=== PATIENT | female | born 1945 | race Caucasian/White ===

== ENCOUNTER 2017-12-10 10:44 | Outpatient (CLI) | payer MEDICARE ==
[~2017-12-10] VITALS: Ht 162.6 cm; Wt 55.5 kg
--- NOTE | ~2017-12-10 | HEMODYNAMI ---
PATIENT:YESSY DIAZ MEDICAL RECORD: [id number] : 47 LOCATION:[facility] ADMISSION DATE: 12/10/17 Generatedon:12/10/201713:40 Patient name: YESSY DIAZ Patient #: [id number] SSN: : 1945 Date of study: 12/10/2017 Page: Of Hemodynamic Procedure Report Patient Data Patient Demographics Procedure consent was obtained First Name: YESSY Gender: Female Last Name: JOE : 1945 Middle Initial: NAVDEEP Age: 72 year(s) Patient #: [id number] Race: Unknown Additional ID: [id number] Contact details Address: [address] [place] [address] State: [place] City: [place] Zip code: [address] Past Medical History Allergies Allergen Reaction Date Comments Reported Codeine 12/10/2017 Percocet 12/10/2017 Other allergy 12/10/2017 hydrocodone Admission Admission Data Admission Date: 12/10/2017 Admission Time: 10:44 Procedure Procedure Types Cath Procedure Diagnostic Procedure [facility] w/Coronaries Sedation Charges Moderate Sedation up to 15 minutes PCI Procedure Coronary Stent Coronary Stent Initial Procedure Description Procedure Date Procedure Date: 12/10/2017 Procedure Start Time: 13:05 Procedure End Time: 13:39 Procedure Staff Name Function Kg Simms MD Performing Physician Lisa Painting RT Monitor Jameel Salvador RN Nurse Po Schwartz RT Scrub Procedure Data Cath Procedure Fluoroscopy Diagnostic fluoroscopy Total fluoroscopy Time: 8.1 time: 8.1 min min Diagnostic fluoroscopy Total fluoroscopy dose: dose: 409.97 mGy 409.97 mGy Contrast Material Contrast Material Type Amount (ml) Isovue 300 177 Entry Location Entry Primary Successful Side Size Upsize Upsize Entry Closure Succes sful Closure Location (Fr) 1 (Fr) 2 (Fr) Remarks Device Remarks Femoral Right 5 Fr 6 Fr Exoseal artery Short Estimated blood loss: 10 ml Diagnostic catheters Device Type Used For End Catheter Placement MULTIPACK JL 4.0 5Fr Left Coronary catheter Angiography MULTIPACK 3DRC 5Fr Right Coronary catheter Angiography MULTIPACK Pigtail 5 Fr LV Angiography catheter Procedure Complications No complications Procedure Medications Medication Administration Route Dosage Oxygen etCO2 Nasal cannula 2 l/min Heparin Flush Bag added to field 2 bags (1000units/500ml NS) 0.9% NaCl I.V. 100 ml/hr Fentanyl I.V. 50 mcg Versed I.V. 1 mg Fentanyl I.V. 50 mcg Versed I.V. 1 mg Heparin Bolus I.V. 4000 units Integrilin (Bolus I.V. 6.8 ml 2mg/ml) Fentanyl I.V. 50 mcg Plavix P.O. 600 mg Hemodynamics Rest Heart Rate: 73 (bpm) Pressure Samples Time Site Value (mmHg) Purpose Heart Use Rate(bpm) 13:13 LV 150/12,14 EDP 81 Gradients Valve Time Site Site Mean SEP/DFP Peak To Heart Use 1 2 (mmHg) (sec/min) Peak Rate (mmHg) (bpm) Aortic 13:14 LV AO 81 Snapshots Pre Cath Intra NCS Post Cath Vital Signs Time Heart Resp SPO2 etCO2 NIBP (mmHg) Rhythm Pain Sedation Rate (ipm) (%) (mmHg) Status Level (bpm) 12:47:41 73 17 0 155/85(115) NSR 0 (11) 10(A) , No pain 12:52:10 72 16 96 36.5 148/84(111) NSR 0 (11) 10(A) , No pain 12:56:30 73 17 97 38 146/81(110) NSR 0 (11) 10(A) , No pain 13:00:56 73 16 98 38.7 142/77(113) NSR 0 (11) 10(A) , No pain 13:05:18 76 16 94 20.8 138/86(116) NSR 0 (11) 10(A) , No pain 13:09:42 78 16 97 40.2 145/77(117) NSR 0 (11) 9(A) , No pain 13:14:06 80 16 97 40.9 142/83(109) NSR 0 (11) 9(A) , No pain 13:18:29 81 16 97 26.8 135/78(108) NSR 0 (11) 9(A) , No pain 13:22:45 81 17 94 23 136/78(108) NSR 0 (11) 9(A) , No pain 13:27:07 81 18 97 41.7 149/75(104) NSR 0 (11) 9(A) , No pain 13:31:35 78 16 95 41.6 146/78(108) NSR 0 (11) 9(A) , No pain 13:36:06 83 16 96 40.2 142/67(119) NSR 0 (11) 9(A) , No pain Medications Time Medication Route Dose Verified Delivered Reason Notes Effectiveness by by 12:49:48 Oxygen etCO2 2 Kg Jorgensen Per physician Nasal l/min St Jesus Salvador RN cannula 12:49:57 Heparin Flush added 2 Kg Jorgensen used for Bag to bags St Jesus Salvador RN procedure (1000units/500ml field NS) 12:50:06 0.9% NaCl I.V. 100 Kg Jorgensen Per physician ml/hr St Jesus Salvador RN, MD 13:02:27 Fentanyl I.V. 50 Kg Jorgensen for sedation katelynn Matta RN, MD 13:02:34 Versed I.V. 1 mg Kg Jorgensen for sedation [facility] Jesus Salvador RN, MD 13:05:51 Fentanyl I.V. 50 Kg Jorgensen for sedation mcg [facility] Jesus Salvador RN, MD 13:05:56 Versed I.V. 1 mg Kg Jorgensen for sedation St Jesus Salvador RN, MD 13:17:15 Heparin Bolus I.V. 4000 Kg Jorgensen for units [facility] Jesus Salvador RN anticoagulation 13:17:33 Integrilin I.V. 6.8 Kg Jorgensen for (Bolus 2mg/ml) ml St Jesus Salvador RN anticoagulation 13:24:51 Fentanyl I.V. 50 Kg Jorgensen for sedation [facility] Jesus Salvador RN, MD 13:36:57 Plavix P.O. 600 Kg Jorgensen for mg [facility] Jesus Salvador RN antiplatelet therapy Procedure Log Time Note 12:20:41 Jameel Salvador RN sent for patient. Start room use. 12:27:39 Time tracking: Regular hours 12:27:42 Plan of Care:Hemodynamics will remain stable., Cardiac rhythm will remain stable., Comfort level will be maintained., Respiratory function will remain adequate., Patient/ family verbilizes understanding of procedure., Procedure tolerated without complication., Recovers from procedure without complications.. 12:39:41 Patient received from Pre/Post Procedure Room to CCL 3 Alert and oriented. Tansferred to table in Supine position. 12:39:42 Warm blankets applied, and lazarus hugger turned on for patient comfort. 12:39:43 Correct patient and procedure confirmed by team. 12:39:44 Signed procedure consent form obtained from patient. 12:39:45 ECG and BP/O2 sat monitors applied to patient. 12:39:55 H&P Date Dictated: 12/07/2017 Within 30 days and on chart., H&P Addendum completed by physician on day of procedure. (MUST COMPLETE FOR ALL OUTPATIENTS). 12:46:22 Vital chart was started 12:46:59 Full Disclosure recording started 12:47:01 Rhythm: sinus rhythm 12:47:03 Pre-procedure instructions explained to patient. 12:47:03 Pre-op teaching completed and patient verbalized understanding. 12:47:04 Family in waiting room. 12:47:05 Patient NPO since Midnight. 12:47:13 Patient allergic to Codeine 12:47:17 Patient allergic to Percocet 12:47:36 Patient allergic to Other allergyhydrocodone 12:47:56 Is the patient allergic to Iodine/contrast media? No. 12:47:59 Is patient on blood thinner?No 12:48:01 Patient diabetic? Yes. 12:48:02 If diabetic: On Metformin? Yes 12:48:05 If on Metformin: Last Dose? 12/09/2017 12:48:08 Previous problem with sedation/anesthesia? No ? 12:48:10 Snore? Yes 12:48:11 Sleep apnea? No 12:48:12 Deviated septum? No 12:48:12 Opens mouth fully? Yes 12:48:13 Sticks out tongue? Yes 12:48:15 Airway obstruction? No ? 12:48:21 Dentures? Yes In 12:48:26 Pre procedure: right dorsailis pedis pulse 2+ Normal; easily identifiable; not easily obliterated 12:48:29 Patient pain scale 0/10 ?. 12:48:37 IV patent on arrival in left hand with 0.9% NaCl at O. 12:48:57 RESERVE RIGHT ARM 12:49:00 Lab results completed and on chart. 12:49:03 Right groin area was prepped with chlora-prep and draped in sterile fashion 12:49:04 Alarms reviewed by R. N. 12:49:04 Sharps counted by scrub and verified by R.N. 12:49:07 Use device set Femoral Dx 12:49:07 ACIST Syringe (96877) opened to sterile field. 12:49:08 Bag Decanter (2002S) opened to sterile field. 12:49:08 Medline Cath Pack ([id number]) opened to sterile field. 12:49:09 SHEATH 5FR Rosamond (RLK993) opened to sterile field. 12:49:10 DIAGNOSTIC WIRE .035 260cm J wire (280267) opened to sterile field. 12:49:11 ACIST Hand Control (48362) opened to sterile field. 12:49:11 ACIST Manifold (86219) opened to sterile field. 12:49:12 DIAGNOSTIC Multipack 5Fr catheter set (JD0175) opened to sterile field. 12:49:13 Tegaderm 4 x 4 (1626W) opened to sterile field. 12:49:14 PERCUTANEOUS ENTRY 19GA needle opened to sterile field. 12:49:48 Oxygen 2 l/min etCO2 Nasal cannula was administered by Jameel Salvador RN; Per physician; 12:49:50 Baseline sample Acquired. 12:49:57 Heparin Flush Bag (1000units/500ml NS) 2 bags added to field was administered by Jameel Salvador RN; used for procedure; 12:50:06 0.9% NaCl 100 ml/hr I.V. was administered by Jameel Salvador RN; Per physician; 12:54:20 Physician paged 12:59:48 Physician paged 13:00:02 Final Timeout: patient, procedure, and site verified with staff and physician. All members of the team are in agreement. 13:00:04 Right groin site verified by team. 13:00:06 Physical assessment completed. ASA score P 2 - A patient with mild systemic disease as per Kg Simms MD. 13:00:10 Sedation plan: IV Moderate Sedation Medication:Versed, Fentanyl 13:02:27 Fentanyl 50 mcg I.V. was administered by Jameel Salvador RN; for sedation; 13:02:34 Versed 1 mg I.V. was administered by Jameel Salvador RN; for sedation; 13:05:10 Procedure started. 13:05:18 Local anesthetic to right femoral artery with Lidocaine 2% by Kg Simms MD.INITIAL ACCESS ONLY 13:05:51 Fentanyl 50 mcg I.V. was administered by Jameel Salvador RN; for sedation; 13:05:56 Versed 1 mg I.V. was administered by Jameel Salvador RN; for sedation; 13:06:09 Zero performed for pressure channel P1 13:06:20 A 5 Fr sheath was inserted into the Right Femoral artery 13:07:14 A MULTIPACK JL 4.0 5Fr catheter was advanced over the wire and used for Left Coronary Angiography. 13:09:02 Use device set JUMA PCI 13:09:08 INFLATOR Merit BasixCompak (FI7819) opened to sterile field. 13:09:13 WHISPER 300cm guide wire ([id number]) opened to sterile field. 13:11:32 Catheter removed. 13:12:00 A MULTIPACK 3DRC 5Fr catheter was advanced over the wire and used for Right Coronary Angiography. 13:12:02 Catheter removed. 13:12:06 A MULTIPACK Pigtail 5 Fr catheter was advanced over the wire and used for LV Angiography. 13:13:07 GUIDE 6FR EBU 3.75 catheter ([id number]) opened to sterile field. 13:13:36 LV gram done using LIN 13:13:37 LV hemodynamics recorded. 13:13:39 Injector settings: Ml/sec: 10, Volume: 20, 13:14:33 SHEATH 6Fr Prelude ([id number]) opened to sterile field. 13:14:43 Catheter removed. 13:14:49 Sheath upsized to a 6 Fr Short. 13:17:15 Heparin Bolus 4000 units I.V. was administered by Jameel Salvador RN; for anticoagulation; 13:17:33 Integrilin (Bolus 2mg/ml) 6.8 ml I.V. was administered by Jameel Salvador RN; for anticoagulation; 13:17:39 6 Fr EBU 3.75 guide catheter was inserted over the wire 13:24:51 Fentanyl 50 mcg I.V. was administered by Jameel Salvador RN; for sedation; 13:25:42 WHISPER wire advanced. 13:27:20 Inflation number: 1 A EUPHORA 2.5 x 15 Balloon ([id number]) was prepped and advanced across the Prox LAD, then inflated to 10 KELLIE for 0:10 (min:sec). 13:28:00 Inflation number: 2 The EUPHORA 2.5 x 15 Balloon ([id number]) was reinflated across the Prox LAD, to 10 KELLIE for 0:22 (min:sec). 13:29:30 Balloon removed over the wire. 13:32:35 Inflation Number: 3 A NORA OTW 2.5 x 18 stent ([id number]) was prepped and advanced across the Prox LAD. The stent was deployed at 14 KELLIE for 0:32 (min:sec). 13:33:11 Stent catheter was removed intact over wire. 13:33:13 Wire removed. 13:33:14 Guide catheter removed. 13:33:21 Sheath removed intact; hemostasis achieved with Exoseal to the Right Femoral artery. 13:33:42 Procedure ended.(Physican Out) 13:34:12 Fluoroscopy time 08.10 minutes. 13:34:19 Fluoroscopy dose: 409.97 mGy 13:34:19 Flurop Dose total: 409.97 13:34:59 Contrast amount:Isovue 300 177ml. 13:35:01 Sharps counted by scrub and verified by R.N. 13:35:03 Insertion/operative site no bleeding no hematoma. 13:35:06 Post-op/insertion site Right Femoral artery dressed using a 4 x 4 and Tegaderm. 13:35:11 Post right femoral artery:stable, clean and dry 13:35:13 Post Procedure Pulses reassessed and unchanged 13:35:15 Post-procedure physical assessment completed. ASA score P 2 - A patient with mild systemic disease as per Kg Simms MD. 13:35:16 Post procedure rhythm: unchanged. 13:35:19 Estimated blood loss: 10 ml 13:35:20 Post procedure instruction explained to patient.Patient verbalizes understanding. 13:35:20 Patient needs reinforcement of post procedure teaching. 13:35:33 Procedure type changed to Cath procedure, Diagnostic procedure, LHC, LHC w/Coronaries, Sedation Charges, Moderate Sedation up to 15 minutes, PCI procedure, Coronary Stent, Coronary Stent Initial 13:35:54 Procedure Complication : No complications 13:35:59 See physician's report for complete and final results. 13:36:11 EXOSEAL 6Fr (EX600) opened to sterile field. 13:36:57 Plavix 600 mg P.O. was administered by Jameel Salvador RN; for antiplatelet therapy; 13:38:15 Procedure and supply charges have been captured, reviewed, submitted and are correct. 13:39:27 Vital chart was stopped 13:39:28 Report given to Pre/Post Procedure Room. 13:39:31 Patient transfered to Pre/Post Procedure Room with Stretcher. 13:39:42 Procedure ended. 13:39:42 Full Disclosure recording stopped 13:39:45 End room use (Document Last) Intervention Summary Intervention Notes Time ActionType Lesion and Equipment Action# Pressure Duration Attributes Used 13:27:20 Inflate Prox LAD EUPHORA 2.5 x 1 10 00:10 balloon 15 Balloon ([id number]) 13:28:00 Reinflate Prox LAD EUPHORA 2.5 x 2 10 00:22 balloon 15 Balloon ([id number]) 13:32:35 Place stent Prox LAD NORA OTW 2.5 3 14 00:32 x 18 stent ([id number]) Device Usage Item Name Manufacture Quantity Catalog Hospital Part Current Minim al Lot# / Number Charge Number Stock Stock Serial# Code ACIST Syringe Acist 1 68958 987853 213244 668361 20 (21564) Medical Systems Inc Bag Decanter Microtek 1 2001S 268285 63229 999296 5 (2001S) Medical Inc. Medline Cath Cardinal 1 [id number] 794808 73372 237295 5 Pack Health ([id number]) SHEATH 5FR Terumo 1 POF248 471337 125777 862277 40 Rosamond (LRL485) DIAGNOSTIC St Dmitriy 1 031671 802266 568544 369239 30 WIRE .035 260cm J wire (223276) ACIST Hand Acist 1 75756 277147 855428 024070 5 Control Medical (16653) Systems Inc ACIST Acist 1 06902 363842 316718 316064 5 Manifold Medical (26334) Systems Inc DIAGNOSTIC Cardinal 1 CC4579 889500 91859 135544 30 Multipack 5Fr Health catheter set (UW6122) Tegaderm 4 x 3M 1 1626W 025679 598857 755303 5 4 (1626W) PERCUTANEOUS Cook Medical 1 U45722 378464 262586 5 ENTRY 19GA needle MULTIPACK JL Cardinal 1 670985 5 4.0 5Fr Health catheter INFLATOR [facility] 1 NE6021 610694 211696 126380 15 [facility] Medical BasixCompak (DK2771) WHISPER 300cm Perez 1 [id number] 248740 050505 968546 5 guide wire Vascular ([id number]) MULTIPACK Cardinal 1 021304 5 3DRC 5Fr Health catheter MULTIPACK Cardinal 1 414420 5 Pigtail 5 Fr Health catheter GUIDE 6FR EBU Medtronic 1 [id number] 715539 92004 957061 1 3.75 catheter ([id number]) SHEATH 6Fr Kasisto[employer] Inc. 1 [id number] 876441 469946 187667 5 Prelude Medical ([id number]) EUPHORA 2.5 x Medtronic 1 [id number] 051086 207908 448145 5 [id number] 15 Balloon ([id number]) NORA OTW 2.5 Medtronic 1 [id number] 955595 30570 442733 5 [id number] x 18 stent ([id number]) EXOSEAL 6Fr Cardinal 1 EX600 362344 423753 393731 10 (EX600) Health Signature Audit [place] Stage Time Signature Unsigned Intra-Procedure 12/10/2017 Lisa 1:39:57 PM Counts RT(R) Signatures Monitor : Lisa Signature : Counts RT Date : Time : [facility] [address] [place] [address]
--- NOTE | ~2017-12-10 | OP ---
PATIENT NAME: YESSY DIAZ MEDICAL RECORD: [id number] :47 LOCATION:D.CAT ADMISSION DATE: SURGEON: WIL DENNISON MD DATE OF OPERATION: 12/10/2017 PROCEDURE: Left heart catheterization, selective coronary angiography, PTCA stent LAD, right femoral approach. CATHETERS: A 5-Citizen Of [place] sheath, 5/4 left and right Sandeep, 5/4 pig. The procedure was well tolerated. We proceeded immediately PTCA stenting of the LAD. FINDINGS: Left ventriculography in 30-degree LIN view: Normal wall motion, normal systolic function. CORONARY ANATOMY. LEFT MAIN: Left main is free of disease. LAD: Has a complex stenosis ____ first diagonal somewhat diffuse consistent with diabetic disease of 90%. CIRCUMFLEX: Has distal disease. RIGHT CORONARY ARTERY: Has diffuse distal disease proximally to the mid portion of about 80%. IMPRESSION: We will plan intervention in a staged fashion ____ LAD. DESCRIPTION OF PROCEDURE: A 5-Citizen [place] sheath was changed for a 6-[place]izen [place] sheath. EBU 3.5 guiding catheter provided good guide catheter support followed by 300 cm Whisper wire was placed across the totally occluded LAD down this portion of this vessel. Pre-deployment balloon used was a 2.5 x 15 mm Euphora up to 10 atmospheres. Stent deployed was a 2.5 x 18 mm [place] drug-eluting stent up to 14 atmospheres for 45 seconds. Final angiography shows excellent resolution of a 90% plus stenosis, no significant residual. TOMMY flow was 3 throughout the procedure. Integrilin was bolused during the case. Sheath closed with ExoSeal device. Plavix was loaded in the lab. PLAN: Intervention to the right at a later date. TRANSINT:[id number] Voice Confirmation ID: [id number] DOCUMENT ID: [id number] WIL DENNISON MD at 1214 CC: [id number] DICTATION DATE: 12/10/17 1343 RN CARDIOVASCULAR ICU: 12/10/17 1521 DEP CLI 12/10/[address] [address]
[2017-12-10] MEDS ORDERED: MOBIC7.5 MG PO (11:14)
[2017-12-10] MEDS ORDERED: ACCUPRIL40 MG PO (11:14)
[2017-12-10] MEDS ORDERED: TENORMIN25 MG PO (11:15)
[2017-12-10] MEDS ORDERED: NORVASC10 MG PO (11:15)
[2017-12-10] MEDS ORDERED: ANASTROZOLE1 MG PO (11:16)
[2017-12-10] MEDS ORDERED: METFORMIN HCL500 M1 PO (11:16)
[2017-12-10] MEDS ORDERED: LEVOTHYROXINE75 MCG PO (11:17)
[2017-12-10] MEDS ORDERED: SINGULAIR10 MG PO (11:17)
[2017-12-10] MEDS ORDERED: ISOSORBIDE MONO30 M1 PO (11:17)
[2017-12-10] MEDS ORDERED: OMEPRAZOLE20 M1 PO (11:18)
[2017-12-10] MEDS ORDERED: CYCLOBENZAPRINE10 MG PO (11:19)
[2017-12-10] MEDS ORDERED: LIPITOR20 MG PO (11:20)
[2017-12-10 11:28] VITALS: BP 152/78; Ht 162.6 cm; Wt 55.5 kg
[2017-12-10 11:36] LABS: BASOPHILS 0.4 % (0-2); EOSINOPHILS 4.1 % (0-7); HEMATOCRIT 39.8 % (36.0-48.0); HEMOGLOBIN 13.8 g/dL (12-16); IMMATURE GRANULOCYTES 0.5 % (0-5); LYMPHOCYTES 23.4 % (15-50); MCH 31.9 pg (26.0-34.0); MCHC 34.7 g/dL (31.0-37.0); MCV 92.1 fL (80.0-100.0); MONOCYTES 10.6 % (2-11); PLATELET COUNT 262 10x3/uL (130-400); RBC 4.32 10x6/uL (4.00-5.40); RDW 12.9 % (11.5-14.5); WBC 10.5 10x3/uL (4.8-10.8)
[2017-12-10 11:57] LABS: CALC OSMOLALITY 288 mosm/kg (275-300); CALCIUM 9.4 mg/dL (8.5-10.1); CARBON DIOXIDE 26.2 mmol/L (21.0-32.0); CHLORIDE - SERUM 106 mmol/L (98-107); CREATININE - SERUM 0.8 mg/dL (0.6-1.3); GLUCOSE 109 mg/dL (74-106); SODIUM 144 mmol/L (136-145); UREA NITROGEN 16 mg/dL (7-18); eGFR NON AFRICAN AMERICAN 75 mL/min (90-120)
[2017-12-10] MEDS ORDERED: PLAVIX75 MG PO (14:15)
[2017-12-10] MEDS ORDERED: BAYER CHEWABLE81 MG PO (14:15)
== END 2017-12-10 17:29 | disposition home or self-care (01) ==
LOC: D.CATH 10:44
PROVIDERS: Internal Medicine Interventional Cardiology
DX: I25.119 Atherosclerotic heart disease of native coronary artery with unspecified angina pectoris (principal); Z01.812 Encounter for preprocedural laboratory examination
CPT/HCPCS: 93458; C9600

== ENCOUNTER → 2017-12-21 10:26 | Outpatient (CLI) | payer MEDICARE ==
[~2017-12-21] VITALS: Ht 162.6 cm; Wt 79.5 kg
--- NOTE | ~2017-12-21 | OP ---
PATIENT NAME: YESSY DIAZ MEDICAL RECORD: [id number] :47 LOCATION:D.CAT ADMISSION DATE: SURGEON: WIL DENNISON MD DATE OF OPERATION: 12/21/2017 PROCEDURE: PTCA stent to right coronary. DESCRIPTION OF PROCEDURE: After a 6-Mauritanian placed in left femoral artery, a hockey stick guide catheter provided good guide catheter support followed by a 300 cm Whisper wire. We attempted primary stenting; however, the 90% stenosis was difficult to transverse with the stent. Therefore, we predeployed with a 3.0 x 50 mm [place] balloon up to 12 atmospheres. Next, stent deployed was a 3.0 x 30 mm Lukas drug-eluting stent up to 14 atmospheres. Final angiography showed excellent resolution of a 90+ percent stenosis, no significant residual. TOMMY flow was 3 throughout the procedure. Heparin was used in the case. Heparin was used during the case. The patient was previously on Plavix. Sheath closed with Exoseal device. TRANSINT:[id number] Voice Confirmation ID: [id number] DOCUMENT ID: [id number] WIL DENNISON MD at 1310 CC: [id number] DICTATION DATE: 12/21/17 1337 PEDIATRIC MEDICAL ASSISTANT: 12/21/17 1506 DEP CLI 12/21/17 [address] [id number] [place] [address]
--- NOTE | ~2017-12-21 | HEMODYNAMI ---
PATIENT:YESSY DIAZ MEDICAL RECORD: [id number] : 47 LOCATION:[facility] ADMISSION DATE: 12/21/17 Generatedon:12/21/201713:37 Patient name: YESSY DIAZ Patient #: [id number] SSN: : 1945 Date of study: 12/21/2017 Page: Of Hemodynamic Procedure Report Patient Data Patient Demographics Procedure consent was obtained First Name: YESSY Gender: Female Last Name: JOE : 1945 Middle Initial: NAVDEEP Age: 72 year(s) Patient #: [id number] Race: Unknown Additional ID: [id number] Contact details Address: [address] [place] [address] State: [place] City: [place] Zip code: [address] Past Medical History Allergies Allergen Reaction Date Comments Reported Codeine 12/10/2017 Percocet 12/10/2017 Other allergy 12/10/2017 hydrocodone Other allergy 12/21/2017 Percocet, Codeine, Hydrocodone. Admission Admission Data Admission Date: 12/21/2017 Admission Time: 10:26 Admit Source: Other Procedure Procedure Types Cath Procedure Diagnostic Procedure Sedation Charges Moderate Sedation up to 15 minutes PCI Procedure Coronary Stent Coronary Stent Initial Procedure Description Procedure Date Procedure Date: 12/21/2017 Procedure Start Time: 13:13 Procedure End Time: 13:36 Procedure Staff Name Function Kg Simms MD Performing Physician Mary Marlow RN Nurse Po Schwartz RT Monitor Ankush Echavarria RT Scrub Procedure Data Cath Procedure Fluoroscopy Diagnostic fluoroscopy Total fluoroscopy Time: 7.9 time: 7.9 min min Diagnostic fluoroscopy Total fluoroscopy dose: 468 dose: 468 mGy mGy Contrast Material Contrast Material Type Amount (ml) Isovue 300 72 Entry Location Entry Primary Successful Side Size Upsize Upsize Entry Closure Succes sful Closure Location (Fr) 1 (Fr) 2 (Fr) Remarks Device Remarks Femoral Left 6 Fr Exoseal artery Short Estimated blood loss: 10 ml Procedure Complications No complications Procedure Medications Medication Administration Route Dosage Oxygen NC 2 l/min Zofran I.V. 4 mg Lidocaine 2% added to field 20 Heparin Flush Bag added to field 2 bags (1000units/500ml NS) 0.9% NaCl I.V. 100 ml/hr Versed I.V. 1 mg Fentanyl I.V. 50 mcg Versed I.V. 1 mg Fentanyl I.V. 50 mcg Heparin Bolus I.V. 4000 units Versed I.V. 1 mg Plavix P.O. 75 mg Hemodynamics Rest Heart Rate: 69 (bpm) Snapshots Pre Cath Intra NCS Post Cath Vital Signs Time Heart Resp SPO2 etCO2 NIBP (mmHg) Rhythm Pain Sedation Rate (ipm) (%) (mmHg) Status Level (bpm) 13:01:57 66 17 96 0 146/90(123) NSR 0 (11) 10(A) , No pain 13:06:35 67 15 94 0 142/71(95) NSR 0 (11) 10(A) , No pain 13:11:12 66 14 95 37.5 138/74(106) NSR 0 (11) 10(A) , No pain 13:15:46 66 15 97 39.1 136/78(112) NSR 0 (11) 9(A) , No pain 13:20:21 67 16 97 12.7 131/73(103) NSR 0 (11) 9(A) , No pain 13:24:56 70 14 96 31.5 131/73(98) NSR 0 (11) 9(A) , No pain 13:29:28 71 15 95 1.5 120/81(107) NSR 0 (11) 9(A) , No pain 13:34:00 75 15 96 38.3 129/73(91) NSR 0 (11) 10(A) , No pain Medications Time Medication Route Dose Verified Delivered Reason Notes Effectiveness by by 13:02:17 Zofran I.V. 4 mg Kg Hernandez Per physician pt has St Jesus Marlow RN nausea with medications 13:02:17 Oxygen NC 2 Kg Hernandez used for l/min [facility] Jesus Marlow RN procedure 13:09:12 Lidocaine 2% added 20ml Kg Hernandez for local to vial [facility] Jesus Marlow RN anesthetic field 13:09:22 Heparin Flush added 2 Kg Hernandez used for Bag to bags Demi Marlow community health educator (1000units/500ml field NS) 13:09:32 0.9% NaCl I.V. 100 Kg Hernandez Per physician ml/hr [facility] Jesus Marlow RN, MD 13:13:46 Versed I.V. 1 mg Kg [place] for sedation [facility] Jesus Marlow RN, MD 13:13:57 Fentanyl I.V. 50 Kg [place] for sedation mcg [facility] Jesus Marlow RN, MD 13:15:05 Versed I.V. 1 mg Kg [place] for sedation [facility] Jesus Marlow RN, MD 13:15:10 Fentanyl I.V. 50 Kg [place] for sedation mcg [facility] Jesus Marlow RN, MD 13:18:26 Heparin Bolus I.V. 4000 Kg [place] for verifi ed units [facility] Jesus Marlow RN anticoagulation with dr MD peerz 13:24:07 Versed I.V. 1 mg Kg [place] for sedation St Jesus Marlow RN, MD 13:35:22 Plavix P.O. 75 mg Kg [place] for St Jesus Marlow RN antiplatelet therapy Procedure Log Time Note 12:27:08 Informed consent obtained and on chart 12:27:11 Admit Source: Other 12:27:39 Diagnostic Cath status Elective 12:27:43 Time tracking: Regular hours 12:27:46 Plan of Care:Hemodynamics will remain stable., Cardiac rhythm will remain stable., Comfort level will be maintained., Respiratory function will remain adequate., Patient/ family verbilizes understanding of procedure., Procedure tolerated without complication., Recovers from procedure without complications.. 12:28:07 H&P Date Dictated: 12/07/2017 Within 30 days and on chart., H&P Addendum completed by physician on day of procedure. (MUST COMPLETE FOR ALL OUTPATIENTS). 12:35:21 Po Schwartz RT(R) sent for patient. Start room use. 12:54:58 Patient received from Pre/Post Procedure Room to CCL 1 Alert and oriented. Tansferred to table in Supine position. 12:54:59 Warm blankets applied, and lazarus hugger turned on for patient comfort. 12:55:00 Correct patient and procedure confirmed by team. 12:55:07 ECG and BP/O2 sat monitors applied to patient. 13:01:02 Vital chart was started 13:02:17 Zofran 4 mg I.V. was administered by Buffie Marlow RN; Per physician; pt has nausea with medications 13:02:17 Oxygen 2 l/min NC was administered by Mary Marlow RN; used for procedure; 13:09:12 Lidocaine 2% 20ml vial added to field was administered by Mary Marlow RN; for local anesthetic; 13:09:22 Heparin Flush Bag (1000units/500ml NS) 2 bags added to field was administered by Mary Marlow RN; used for procedure; 13:09:32 0.9% NaCl 100 ml/hr I.V. was administered by Mary Marlow RN; Per physician; 13:09:49 Baseline sample Acquired. 13:09:54 Rhythm: sinus rhythm 13:09:56 Full Disclosure recording started 13::59 Pre-procedure instructions explained to patient. 13:09:59 Pre-op teaching completed and patient verbalized understanding. 13:10:01 Family in waiting room. 13:10:02 Patient NPO since Midnight. 13:10:29 Patient allergic to Other allergyPercocet, Codeine, Hydrocodone. 13:11:47 Is the patient allergic to Iodine/contrast media? No. 13:11:49 Is patient on blood thinner?Yes 13:11:52 ACC The patient was administered the following blood thiners within the last 24 hours: ACCPlavix 13:11:54 Patient diabetic? Yes. 13:11:58 If on Metformin: Last Dose? 12/19/2017 13:12:17 Previous problem with sedation/anesthesia? No ? 13:12:17 Snore? Yes 13:12:18 Sleep apnea? Yes 13:12:19 Deviated septum? No 13:12:20 Opens mouth fully? Yes 13:12:21 Sticks out tongue? Yes 13:12:23 Airway obstruction? No ? 13:12:26 Dentures? Yes partial in tight 13:12:29 Pre procedure: left dorsailis pedis pulse 2+ Normal; easily identifiable; not easily obliterated 13:12:30 Patient pain scale 0/10 ?. 13:12:34 IV patent on arrival in left antecubital with 0.9% NaCl at [facility]. 13:12:39 Lab results completed and on chart. 13:12:41 Left groin area was prepped with chlora-prep and draped in sterile fashion 13:12:43 Alarms reviewed by RMakayla Oliver 13:12:43 Sharps counted by scrub and verified by R.N. 13:12:50 DIAGNOSTIC WIRE .035 260cm J wire ([id number]) opened to sterile field. 13:12:50 INFLATOR Merit BasixCompak ([id number]) opened to sterile field. 13:12:51 Medline Cath Pack ([id number]) opened to sterile field. 13:12:51 Bag Decanter (2002S) opened to sterile field. 13:12:53 ACIST Syringe (65323) opened to sterile field. 13:12:54 ACIST Hand Control (20072) opened to sterile field. 13:12:54 ACIST Manifold (31351) opened to sterile field. 13:12:55 Tegaderm 4 x 4 (1626W) opened to sterile field. 13:12:56 PERCUTANEOUS ENTRY 19GA needle opened to sterile field. 13:13:15 SHEATH 6Fr Prelude ([id number]) opened to sterile field. 13:13:22 Physician arrived 13:13:23 --------ALL STOP TIME OUT------ 13:13:23 Final Timeout: patient, procedure, and site verified with staff and physician. All members of the team are in agreement. 13:13:25 Left groin site verified by team. 13:13:28 Physical assessment completed. ASA score P 2 - A patient with mild systemic disease as per Kg Simms MD. 13:13:31 Sedation plan: IV Moderate Sedation Medication:Versed, Fentanyl 13:13:36 Procedure started. 13:13:42 Local anesthetic to left femerol artery with Lidocaine 2% by Kg Simms MD.INITIAL ACCESS ONLY 13:13:46 Versed 1 mg I.V. was administered by Mary Marlow RN; for sedation; 13:13:50 A 6 Fr Short sheath was inserted into the Left Femoral artery 13:13:54 Zero performed for pressure channel P1 13:13:57 Fentanyl 50 mcg I.V. was administered by Mary Marlow RN; for sedation; 13:14:40 GUIDE 6FR HS I catheter (LA6HSI) opened to sterile field. 13:15:05 Versed 1 mg I.V. was administered by Mary Marlow RN; for sedation; 13:15:10 Fentanyl 50 mcg I.V. was administered by Mary Marlow RN; for sedation; 13:16:04 6 Fr HSI SH guide catheter was inserted over the wire 13:17:07 WHISPER 300cm guide wire ([id number]) opened to sterile field. 13:18:26 Heparin Bolus 4000 units I.V. was administered by Mary Marlow RN; for anticoagulation; verified with dr perez 13:19:19 whisper wire advanced. 13:23:20 Wire advanced across lesion. 13:24:07 Versed 1 mg I.V. was administered by Mary Marlow RN; for sedation; 13:24:41 The NORA OTW 3.0 x 30 stent ([id number]) was advanced then removed because of failure to cross lesion 13:27:01 Inflate balloon Inflation number: 1 A EMERGE OTW 3.0 x 15 balloon ([id number]) was prepped and advanced across the Prox RCA, then inflated to 12 KELLIE for 0:30 (min:sec). 13:27:17 Balloon removed over the wire. 13:30:00 Place stent Inflation Number: 2 A NORA OTW 3.0 x 30 stent ([id number]) was prepped and advanced across the Prox RCA. The stent was deployed at 14 KELLIE for 0:30 (min:sec). 13:30:19 Stent catheter was removed intact over wire. 13:30:20 Wire removed. 13:30:21 Guide catheter removed. 13:30:27 EXOSEAL 6Fr (EX600) opened to sterile field. 13:30:37 Sheath removed intact; hemostasis achieved with Exoseal to the Left Femoral artery. 13:30:39 Procedure ended.(Physican Out) 13:31:07 Fluoroscopy time 07.90 minutes. 13:31:17 Flurop Dose total: 468 13:31:17 Fluoroscopy dose: 468 mGy 13:32:38 Contrast amount:Isovue 300 72ml. 13:32:40 Sharps counted by scrub and verified by R.N. 13:32:50 Insertion/operative site no bleeding no hematoma. 13:32:53 Post-op/insertion site Left Femoral artery dressed using a 4 x 4 and Tegaderm. 13:32:57 Post left femerol artery:stable, soft, clean and dry 13:33:00 Post Procedure Pulses reassessed and unchanged 13:33:02 Post-procedure physical assessment completed. ASA score P 2 - A patient with mild systemic disease as per Kg Simms MD. 13:33:04 Post procedure rhythm: unchanged. 13:33:06 Estimated blood loss: 10 ml 13:33:07 Post procedure instruction explained to patient.Patient verbalizes understanding. 13:33:08 Patient needs reinforcement of post procedure teaching. 13:33:21 Procedure type changed to Cath procedure, Diagnostic procedure, Sedation Charges, Moderate Sedation up to 15 minutes, PCI procedure, Coronary Stent, Coronary Stent Initial 13:35:22 Plavix 75 mg P.O. was administered by Mary Marlow RN; for antiplatelet therapy; 13:36:16 Procedure and supply charges have been captured, reviewed, submitted and are correct. 13:36:18 Procedure Complication : No complications 13:36:21 Vital chart was stopped 13:36:22 See physician's report for complete and final results. 13:36:24 Report given to Pre/Post Procedure Room. 13:36:27 Patient transfered to Pre/Post Procedure Room with Stretcher. 13:36:29 Procedure ended. 13:36:29 Full Disclosure recording stopped 13:36:43 End room use (Document Last) Intervention Summary Intervention Notes Time ActionType Lesion and Equipment Action# Pressure Duration Attributes Used 13:24:41 Discard NORA OTW 3.0 Stent x 30 stent ([id number]) 13:27:01 Inflate Prox RCA EMERGE OTW 1 12 00:30 balloon 3.0 x 15 balloon ([id number]) 13:30:00 Place stent Prox RCA NORA OTW 3.0 2 14 00:30 x 30 stent ([id number]) Device Usage Item Name Manufacture Quantity Catalog Number Hospital Part Current M inimal Lot# / Charge Number Stock Stock Serial# Code Medline Cath Cardinal 1 [id number] 713793 70506 860984 5 Pack Health ([id number]) Bag Decanter Microtek 1 892108 45104 229314 5 () Medical Inc. ACIST Syringe Acist 1 82533 486535 689787 265697 2 0 (61316) Medical Systems Inc ACIST Hand Acist 1 68233 118920 602985 193364 5 Control Medical (56771) Systems Inc ACIST Acist 1 48165 869192 781069 919531 5 Manifold Medical (60469) Systems Inc Tegaderm 4 x 3M 1 1626W 516444 013525 644923 5 4 (1626W) PERCUTANEOUS Cook Medical 1 [id number] 903892 631208 5 ENTRY 19GA needle SHEATH 6Fr Merit 1 [id number] 262243 276923 906160 5 Prelude Medical ([id number]) GUIDE 6FR HS Medtronic 1 LA6HSI 626476 43347 244822 1 I catheter (LA6HSI) WHISPER 300cm Perez 1 [id number] 910425 543325 625382 5 guide wire Vascular ([id number]) NORA OTW 3.0 Medtronic 1 [id number] 988645 6840852 735422 5 [id number] x 30 stent ([id number]) EMERGE OTW [place] 1 [id number] 924128 168227 838690 5 [id number] 3.0 x 15 Scientific balloon ([id number]) EXOSEAL 6Fr Cardinal 1 EX600 215190 368451 769160 1 0 (EX600) Health INFLATOR [facility] 1 LS4145 300587 584014 117525 1 5 [facility] BasixCompak ([id number]) DIAGNOSTIC St Dmitriy 1 757018 642573 994659 751702 3 0 WIRE .035 260cm J wire (566239) Signature Audit [place] Stage Time Signature Unsigned Intra-Procedure 12/21/2017 Po Schwartz 1:37:28 PM RT(R) Signatures Monitor : Po Schwartz RT Signature : Date : Time : [facility] [address] [place], [place] [address]
[~2017-12-21 10:26] MED LIST: ACCUPRIL40 MG PO; ANASTROZOLE1 MG PO; BAYER CHEWABLE81 MG PO; CYCLOBENZAPRINE10 MG PO; ISOSORBIDE MONO30 M1 PO; LEVOTHYROXINE75 MCG PO; LIPITOR20 MG PO; METFORMIN HCL500 M1 PO; MOBIC7.5 MG PO; NORVASC10 MG PO; OMEPRAZOLE20 M1 PO; PLAVIX75 MG PO; SINGULAIR10 MG PO; TENORMIN25 MG PO
[2017-12-21 11:17] VITALS: BP 144/77; Ht 162.6 cm; Wt 79.5 kg
[2017-12-21 11:37] LABS: HEMATOCRIT 42.7 % (36.0-48.0); HEMOGLOBIN 14.9 g/dL (12-16); LYMPHOCYTES 20.7 % (15-50); MCH 31.4 pg (26.0-34.0); MCHC 34.9 g/dL (31.0-37.0); MCV 89.9 fL (80.0-100.0); MEAN PLATELET VOLUME 9.5 fL (7.4-10.4); NEUTROPHILS 70.3 % (40-80); RBC 4.75 10x6/uL (4.00-5.40); RDW 13.1 % (11.5-14.5); WBC 10.3 10x3/uL (4.8-10.8)
[2017-12-21 11:38] LABS: PLATELET COUNT 324 10x3/uL (130-400)
[2017-12-21 12:03] LABS: ANION GAP 13.6 mmol/L (8-16); CALCIUM 9.4 mg/dL (8.5-10.1); CARBON DIOXIDE 30.2 mmol/L (21.0-32.0); CREATININE - SERUM 0.9 mg/dL (0.6-1.3); POTASSIUM - SERUM 3.8 mmol/L (3.5-5.1)
== END | disposition home or self-care (01) ==
LOC: D.CATH 10:26
PROVIDERS: Internal Medicine Interventional Cardiology
DX: I25.119 Atherosclerotic heart disease of native coronary artery with unspecified angina pectoris (principal); R07.9 Chest pain, unspecified; E11.9 Type 2 diabetes mellitus without complications; I10 Essential (primary) hypertension; Z01.812 Encounter for preprocedural laboratory examination